=== PATIENT | male | born 1960 | race Two or more races ===

== ENCOUNTER 2021-11-24 14:22 | Emergency (ER) | payer MEDICAID, OTHER ==
[~2021-11-24] VITALS: Ht 177.8 cm; Wt 83.1 kg
[2021-11-24 15:55] VITALS: BP 120/85
[2021-11-24] MEDS ORDERED: AZIT500T66 PO (16:44)
[2021-11-24] MEDS ORDERED: ACET-1080 PO (16:44)
== END 2021-11-24 16:53 | disposition home or self-care (01) ==
LOC: ER 14:22
DX: U07.1 COVID-19 (principal); M79.10 Myalgia, unspecified site
CPT/HCPCS: 36415; 71045